=== PATIENT | male | born 1975 | race Caucasian/White ===

== ENCOUNTER 2018-10-08 12:45 | Emergency (ER) | payer BC, SELFPAY ==
--- NOTE | 2018-10-08 13:01 | EDPHYS ---
Physician Documentation [facility] Name: Reynaldo Mast Age: 43 yrs Sex: Male : 1975 Arrival Date: 10/08/2018 Time: 12:48 Bed 11 Private MD: None, None ED Physician Fred Garcia HPI: 10/08 12:58 This 43 yrs old Male presents to ER via Ambulatory with complaints of Ear jr8 Pain. 12:58 The patient presents with pain. The complaints affect the right ear. Onset: The jr8 symptoms/episode began/occurred gradually, 1 week(s) ago, and became worse and became persistent. Modifying factors: The symptoms are alleviated by nothing, the symptoms are aggravated by touching. Associated signs and symptoms: The patient has no apparent associated signs or symptoms. Severity of symptoms: At their worst the symptoms were moderate in the emergency department the symptoms are unchanged. It is unknown whether or not the patient has had similar symptoms in the past. The patient has not recently seen a physician. Historical: - Allergies: 12:50 PENICILLINS; sv - PMHx: 12:50 Diabetes - IDDM; right eye blind; Hypertension; sv - PSHx: 12:50 ear; sv - Immunization history:: Flu vaccine is up to date. - Social history:: Smoking status: Patient uses tobacco products, smokes one pack cigarettes per day. - Ebola Screening: : No symptoms or risks identified at this time. ROS: 12:58 Eyes: Negative for injury, pain, redness, and discharge, Neck: Negative for injury, jr8 pain, and swelling, Cardiovascular: Negative for chest pain, palpitations, and edema, Respiratory: Negative for shortness of breath, cough, wheezing, and pleuritic chest pain, Abdomen/GI: Negative for abdominal pain, nausea, vomiting, diarrhea, and constipation, Back: Negative for injury and pain, MS/Extremity: Negative for injury and deformity, Skin: Negative for injury, rash, and discoloration, Neuro: Negative for headache, weakness, numbness, tingling, and seizure. 12:58 ENT: Positive for ear pain, Negative for drainage from ear(s), Teeth pain tinnitus, nasal discharge, rhinorrhea, sinus congestion, sore throat, difficulty swallowing, difficulty handling secretions, hoarseness. Exam: 12:58 Head/Face: Normocephalic, atraumatic. Eyes: Pupils equal round and reactive to light, jr8 extra-ocular motions intact. Lids and lashes normal. Conjunctiva and sclera are non-icteric and not injected. Cornea within normal limits. Periorbital areas with no swelling, redness, or edema. Neck: Trachea midline, no thyromegaly or masses palpated, and no cervical lymphadenopathy. Supple, full range of motion without nuchal rigidity, or vertebral point tenderness. No Meningismus. Cardiovascular: Regular rate and rhythm with a normal S1 and S2. No gallops, murmurs, or rubs. Normal PMI, no JVD. No pulse deficits. Respiratory: Lungs have equal breath sounds bilaterally, clear to auscultation and percussion. No rales, rhonchi or wheezes noted. No increased work of breathing, no retractions or nasal flaring. Abdomen/GI: Soft, non-tender, with normal bowel sounds. No distension or tympany. No guarding or rebound. No evidence of tenderness throughout. Back: No spinal tenderness. No costovertebral tenderness. Full range of motion. Skin: Warm, dry with normal turgor. Normal color with no rashes, no lesions, and no evidence of cellulitis. MS/ Extremity: Pulses equal, no cyanosis. Neurovascular intact. Full, normal range of motion. Neuro: Awake and alert, GCS 15, oriented to person, place, time, and situation. Cranial nerves II-XII grossly intact. Motor strength 5/5 in all extremities. Sensory grossly intact. Cerebellar exam normal. Normal gait. 12:58 ENT: External ear(s): are unremarkable, Ear canal(s): erythema, that is moderate, of the right canal, purulent discharge, that is moderate, in the right canal, TM's: decreased mobility, on the right, dullness, on the right, erythema, that is moderate, on the right, fluid levels, on the right, Nose: External nose: no obvious acute abnormality, Nasal septum: is midline, Nasal mucosa: moist, Turbinates: are normal, Mouth: Lips: moist, Oral mucosa: pink and intact, moist, Gums: pink, Tongue: is moist, Posterior pharynx: Airway: patent, Tonsils: are normal in appearance, Uvula: midline, non-edematous, no erythema, swelling, is not appreciated, erythema, is not appreciated. Vital Signs: 12:50 BP 154 / 87; Pulse 72; Resp 18; Temp 98.3; Pulse Ox 100% ; Weight 58.97 kg; Height 5 sv ft. 4 in. (162.56 cm); Pain 8/10; 12:50 Body Mass Index 22.32 (58.97 kg, 162.56 cm) sv MDM: 12:54 Patient medically screened. jr8 12:58 Data reviewed: vital signs, nurses notes, and as a result, I will discharge patient. jr8 Data interpreted: Pulse oximetry: on room air is 100 %. Interpretation: normal. Counseling: I had a detailed discussion with the patient and/or guardian regarding: the historical points, exam findings, and any diagnostic results supporting the discharge/admit diagnosis. Counseling: I had a detailed discussion with the patient and/or guardian regarding: the need for outpatient follow up, a family practitioner, to return to the emergency department if symptoms worsen or persist or if there are any questions or concerns that arise at home. Administered Medications: 13:30 Not Given (order changed): Opp (7.5 mg-325 mg) 1 tabs PO once sv 13:30 Drug: Opp 5 mg-325 mg 1 tabs Route: PO; sv Disposition: 16:46 Co-signature as Attending Physician, Fred Garcia MD. ma2 Disposition: 10/08/18 13:01 Discharged to Home. Impression: Acute suppurative otitis media, Acute contact otitis externa, right ear. - Condition is Stable. - Discharge Instructions: Otitis Media, Adult, Otitis Externa. - Prescriptions for Zithromax Z- Tarik 250 mg Oral Tablet - take 1 tablet by ORAL route as directed for 5 days Day 1 - take two (2) tablets one time. Day 2, 3, 4 , 5 take one (1) tablet once daily.; 6 tablet. Ciprodex 0.3- 0.1 % Otic Drops, Suspension - instill 4 drop by OTIC route every 12 hours for 7 days , for ears ONLY; 1 Container. Tylenol- Codeine #3 300-30 mg Oral Tablet - take 2 tablets by ORAL route every 6 hours As needed; 12 tablet. - Medication Reconciliation Form, Thank You Letter, Antibiotic Education, Prescription Opioid Use form. - Follow up: Private Physician; When: 1 week; Reason: Recheck today's complaints, Continuance of care, Re-evaluation by your physician. - Problem is new. - Symptoms have improved. Signatures: Claudette Acosta RN RN Westley Mendez PA PA jr8 Fred Garcia MD MD ma2 Corrections: (The following items were deleted from the chart) 13:30 13:01 10/08/2018 13:01 Discharged to Home. Impression: Acute suppurative otitis media; sv Acute contact otitis externa, right ear. Condition is Stable. Forms are Medication Reconciliation Form, Thank You Letter, Antibiotic Education, Prescription Opioid Use. Follow up: Private Physician; When: 1 week; Reason: Recheck today's complaints, Continuance of care, Re-evaluation by your physician. Problem is new. Symptoms have improved. jr8
--- NOTE | 2018-10-08 13:01 | ER ---
Nurse's Notes [facility] Name: Reynaldo Mast Age: 43 yrs Sex: Male : 1975 Arrival Date: 10/08/2018 Time: 12:48 Bed 11 Private MD: None, None Diagnosis: Acute suppurative otitis media;Acute contact otitis externa, right ear Presentation: 10/08 12:49 Presenting complaint: Patient states: right ear pain x 1 week. Transition of care: sv patient was not received from another setting of care. Onset of symptoms was October 01, 2018. Care prior to arrival: None. 12:49 Method Of Arrival: Ambulatory sv 12:49 Acuity: MADI 5 sv Triage Assessment: 12:49 General: Appears in no apparent distress. uncomfortable, Behavior is calm, cooperative, sv appropriate for age. Pain: Complains of pain in right ear Pain currently is 8 out of 10 on a pain scale. Pain began 1 week ago. EENT: Reports pain in right ear. Neuro: Level of Consciousness is awake, alert, obeys commands, Oriented to person, place, time, situation, Moves all extremities. Full function Gait is steady. Respiratory: Respiratory effort is even, unlabored, Respiratory pattern is regular, symmetrical. Derm: Skin is pink, warm \T\ dry. Historical: - Allergies: 12:50 PENICILLINS; sv - PMHx: 12:50 Diabetes - IDDM; right eye blind; Hypertension; sv - PSHx: 12:50 ear; sv - Immunization history:: Flu vaccine is up to date. - Social history:: Smoking status: Patient uses tobacco products, smokes one pack cigarettes per day. - Ebola Screening: : No symptoms or risks identified at this time. Screenin:55 Abuse screen: Denies threats or abuse. Denies injuries from another. Nutritional sv screening: No deficits noted. Tuberculosis screening: No symptoms or risk factors identified. Fall Risk None identified. Assessment: 12:55 Reassessment: Patient appears in no apparent distress at this time. No changes from sv previously documented assessment. See triage assessment. Vital Signs: 12:50 BP 154 / 87; Pulse 72; Resp 18; Temp 98.3; Pulse Ox 100% ; Weight 58.97 kg; Height 5 sv ft. 4 in. (162.56 cm); Pain 8/10; 12:50 Body Mass Index 22.32 (58.97 kg, 162.56 cm) sv ED Course: 12:48 Patient arrived in ED. sb2 12:48 None, None is Private Physician. sb2 12:50 Triage completed. sv 12:51 Arm band placed on. sv 12:54 Claudette Acosta RN is Primary Nurse. sv 12:54 Westley Lima PA is PHCP. jr8 12:54 Fred Garcia MD is Attending Physician. jr8 12:55 Patient has correct armband on for positive identification. Adult w/ patient. sv 19:10 Primary Nurse role handed off by Claudette Acosta RN sv Administered Medications: 13:30 Not Given (order changed): Pep (7.5 mg-325 mg) 1 tabs PO once sv 13:30 Drug: Pep 5 mg-325 mg 1 tabs Route: PO; sv Outcome: 13:01 Discharge ordered by . jr8 13:30 Patient left the ED. sv Signatures: Claudette Acosta RN RN sv Westley Lima PA PA jr8 Chasidy Ramírez sb2 Corrections: (The following items were deleted from the chart) 12:52 12:50 Pulse 72bpm; Resp 18bpm; Pulse Ox 100%; Temp 98.3F; 58.97 kg; Height 5 ft. 4 in.; sv BMI: 22.3; Pain 8/10; sv
[2018-10-08] MEDS ORDERED: HYDROCODONE/APAP 5/325 MG TAB ONE (13:37)
[2018-10-08] MEDS ORDERED: GABAPENTIN 300 MG CAP ONE (13:47)
== END 2018-10-08 13:30 | disposition home or self-care (01) ==
LOC: ER 12:45
DX: H66.001 Acute suppurative otitis media without spontaneous rupture of ear drum, right ear (principal); H60.531 Acute contact otitis externa, right ear; I10 Essential (primary) hypertension; F17.210 Nicotine dependence, cigarettes, uncomplicated; Z88.0 Allergy status to penicillin
CPT/HCPCS: 99282

== ENCOUNTER 2018-10-22 10:33 | Emergency (ER) | payer OTHER, SELFPAY ==
--- NOTE | 2018-10-22 12:12 | ER ---
Nurse's Notes [facility] Name: Reynaldo Mast Age: 43 yrs Sex: Male : 1975 Arrival Date: 10/22/2018 Time: 10:35 Bed 11 Private MD: Diagnosis: Otitis media, unspecified, right ear Presentation: 10/22 10:44 Presenting complaint: Patient states: right ear pain and ear drainage for a couple of sv weeks and was seen here and sent home with prescriptions. Transition of care: patient was not received from another setting of care. Onset of symptoms was September 2018. Care prior to arrival: None. 10:44 Method Of Arrival: Ambulatory sv 10:44 Acuity: MADI 4 sv Triage Assessment: 10:46 General: Appears in no apparent distress. uncomfortable, Behavior is calm, cooperative, sv appropriate for age. Pain: Complains of pain in right ear Pain currently is 8 out of 10 on a pain scale. EENT: Reports pain in right ear and drainage. Neuro: Level of Consciousness is awake, alert, obeys commands, Oriented to person, place, time, situation, Gait is steady. Respiratory: Respiratory effort is even, unlabored, Respiratory pattern is regular, symmetrical. Historical: - Allergies: 10:45 PENICILLINS; sv - PMHx: 10:45 Diabetes - IDDM; Hypertension; right eye blind; sv - PSHx: 10:45 ear; sv - Immunization history:: Flu vaccine is up to date. - Social history:: Smoking status: Patient uses tobacco products, smokes one pack cigarettes per day. - Ebola Screening: : No symptoms or risks identified at this time. Screenin:52 Abuse screen: Denies threats or abuse. Denies injuries from another. Nutritional sv screening: No deficits noted. Tuberculosis screening: No symptoms or risk factors identified. Fall Risk None identified. Assessment: 11:51 Reassessment: Patient appears in no apparent distress at this time. No changes from sv previously documented assessment. Patient and/or family updated on plan of care and expected duration. Pain level reassessed. Patient is alert, oriented x 3, equal unlabored respirations, skin warm/dry/pink. See triage assessment. Vital Signs: 10:46 BP 131 / 97; Pulse 69; Resp 18; Temp 97.7; Pulse Ox 100% ; Weight 58.97 kg; Height 5 sv ft. 4 in. (162.56 cm); Pain 8/10; 10:46 Body Mass Index 22.32 (58.97 kg, 162.56 cm) sv ED Course: 10:35 Patient arrived in ED. as 10:45 Triage completed. sv 10:47 Arm band placed on Patient placed in waiting room, Patient notified of wait time. sv 11:47 Davon Voss PA is PHCP. cp 11:47 tSan Araujo MD is Attending Physician. cp 11:52 Patient has correct armband on for positive identification. sv 12:10 Claudette Montemayor MD is Referral Physician. cp 12:29 No provider procedures requiring assistance completed. Patient did not have IV access sv during this emergency room visit. Administered Medications: 12:29 Drug: traMADol 50 mg Route: PO; sv 12:29 Follow up: Response: Medication administered at discharge. sv 12:29 Drug: Ibuprofen 800 mg Route: PO; sv 12:29 Follow up: Response: Medication administered at discharge. sv Outcome: 12:12 Discharge ordered by MD. cp 12:29 Discharged to home ambulatory, with family. sv 12:29 Condition: stable 12:29 Discharge instructions given to patient, Instructed on discharge instructions, follow up and referral plans. medication usage, Demonstrated understanding of instructions, follow-up care, medications, Prescriptions given X 3. 12:29 Patient left the ED. sv Signatures: Claudette Acosta, RN RN Meera Huerta as Davon Voss PA PA cp Corrections: (The following items were deleted from the chart) 10:47 10:46 Pulse 69bpm; Resp 18bpm; Pulse Ox 100%; Temp 97.7F; 58.97 kg; Height 5 ft. 4 in.; sv BMI: 22.3; Pain 8/10; sv 10:48 10:44 Presenting complaint: Patient states: right ear pain for a couple of weeks and sv was seen here and sent home with prescriptions. sv
--- NOTE | 2018-10-22 12:13 | EDPHYS ---
Physician Documentation [facility] Name: Reynaldo Mast Age: 43 yrs Sex: Male : 1975 Arrival Date: 10/22/2018 Time: 10:35 Bed 11 Private MD: ED Physician Stan Araujo HPI: 10/22 12:05 This 43 yrs old Male presents to ER via Ambulatory with complaints of Ear cp Pain. 12:05 The patient presents with drainage, that is purulent, pain. The complaints affect the cp right ear. Onset: The symptoms/episode began/occurred 2 week(s) ago. Associated signs and symptoms: Pertinent negatives: cough, fever, rhinorrhea, sinus trouble, sore throat, vomiting. Severity of symptoms: in the emergency department the symptoms are unchanged despite home interventions. The patient has experienced a previous episode, last month. Historical: - Allergies: 10:45 PENICILLINS; sv - PMHx: 10:45 Diabetes - IDDM; Hypertension; right eye blind; sv - PSHx: 10:45 ear; sv - Immunization history:: Flu vaccine is up to date. - Social history:: Smoking status: Patient uses tobacco products, smokes one pack cigarettes per day. - Ebola Screening: : No symptoms or risks identified at this time. ROS: 12:06 Eyes: Negative for injury, pain, redness, and discharge. cp 12:06 Constitutional: Negative for body aches, chills, fever, poor PO intake. 12:06 ENT: Positive for drainage from ear(s), ear pain, Negative for sore throat, difficulty swallowing, difficulty handling secretions. 12:06 Respiratory: Negative for cough, shortness of breath, wheezing. 12:06 Abdomen/GI: Negative for abdominal pain, nausea, vomiting, and diarrhea. 12:06 Skin: Negative for cellulitis, rash. 12:06 Neuro: Negative for altered mental status, headache, weakness. 12:06 All other systems are negative. Exam: 12:08 Head/Face: Normocephalic, atraumatic. cp 12:08 Constitutional: The patient appears in no acute distress, alert, awake, non-toxic, well developed, well nourished. 12:08 Eyes: Periorbital structures: appear normal, Conjunctiva: normal, no exudate, no injection, Lids and lashes: appear normal, bilaterally. 12:08 ENT: External ear(s): are unremarkable, Ear canal(s): clear drainage noted right EAC, TM's: bulging, is not appreciated, bilaterally, erythema, that is mild, on the right, Nose: is normal, Mouth: Lips: moist, Oral mucosa: pink and intact, moist, Posterior pharynx: is normal, airway is patent, no erythema, no exudate. 12:08 Neck: ROM/movement: is normal, is supple, without pain, no range of motions limitations, no meningismus, no nuchal rigidity, Lymph nodes: no appreciated lymphadenopathy. 12:08 Chest/axilla: Inspection: normal. cp 12:08 Cardiovascular: Rate: normal. 12:08 Respiratory: the patient does not display signs of respiratory distress, Respirations: normal, no use of accessory muscles, no retractions, no splinting, no tachypnea. 12:08 Skin: cellulitis, is not appreciated, no rash present. Vital Signs: 10:46 BP 131 / 97; Pulse 69; Resp 18; Temp 97.7; Pulse Ox 100% ; Weight 58.97 kg; Height 5 sv ft. 4 in. (162.56 cm); Pain 8/10; 10:46 Body Mass Index 22.32 (58.97 kg, 162.56 cm) sv MDM: 11:47 Patient medically screened. cp 12:10 Differential diagnosis: otitis media, otitis externa, cerumen impaction, barotrauma . cp 12:11 Data reviewed: vital signs, nurses notes, and as a result, I will discharge patient. cp Administered Medications: 12:29 Drug: traMADol 50 mg Route: PO; sv 12:29 Follow up: Response: Medication administered at discharge. sv 12:29 Drug: Ibuprofen 800 mg Route: PO; sv 12:29 Follow up: Response: Medication administered at discharge. sv Disposition: 12:59 Co-signature as Attending Physician, Stan Araujo MD I agree with the assessment and kdr plan of care. Disposition: 10/22/18 12:12 Discharged to Home. Impression: Otitis media, unspecified, right ear. - Condition is Stable. - Discharge Instructions: Otitis Media, Adult, [id number]. - Prescriptions for cefdinir 300 mg Oral capsule - take 1 capsule by ORAL route every 12 hours for 10 days; 20 capsule. Ibuprofen 800 mg Oral Tablet - take 1 tablet by ORAL route every 8 hours As needed take with food; 30 tablet. Tramadol 50 mg Oral Tablet - take 1 tablet by ORAL route every 8 hours as needed; 12 tablet. - Medication Reconciliation Form, Thank You Letter, Antibiotic Education, Prescription Opioid Use form. - Follow up: Claudette Montemayor MD; When: 1 week; Reason: Recheck today's complaints. - Problem is new. - Symptoms are unchanged. Signatures: Claudette Acosta RN RN Stan Draper MD MD [facility] Davon Voss PA PA cp Corrections: (The following items were deleted from the chart) 12:29 12:12 10/22/2018 12:12 Discharged to Home. Impression: Otitis media, unspecified, right sv ear. Condition is Stable. Forms are Medication Reconciliation Form, Thank You Letter, Antibiotic Education, Prescription Opioid Use. Follow up: Claudette Montemayor; When: 1 week; Reason: Recheck today's complaints. Problem is new. Symptoms are unchanged. cp
[2018-10-22] MEDS ORDERED: TRAMADOL HCL 50 MG TAB ONE (12:35)
[2018-10-22] MEDS ORDERED: IBUPROFEN 400 MG TAB ONE (12:35)
== END 2018-10-22 12:29 | disposition home or self-care (01) ==
LOC: ER 10:33
DX: H66.91 Otitis media, unspecified, right ear (principal); I10 Essential (primary) hypertension; F17.210 Nicotine dependence, cigarettes, uncomplicated; Z88.0 Allergy status to penicillin
CPT/HCPCS: 99283

== ENCOUNTER 2019-01-28 21:34 | Emergency (ER) | payer OTHER ==
--- OUTSIDE RECORDS SUMMARY | 2019-01-28 21:36 | XMS REPORT ---
:1975 Author [facility] Address [address] [place] [address] Dr. Obrien [address] [place] [id number] Care Team Providers Name Role Phone Unavailable Unavailable Unavailable Problems This patient has no known problems. Allergies, Adverse Reactions, Alerts This patient has no known allergies or adverse reactions. Medications This patient has no known medications.
--- NOTE | 2019-01-28 22:39 | RAD REPORT ---
EXAM DESCRIPTION: RAD - Lumbar Spine 3 Views - 01/28/2019 10:32 pm CLINICAL HISTORY: Back pain FINDINGS: The alignment of the lumbar spine is satisfactory. No fracture or dislocation is seen. No bone or joint abnormality seen
--- NOTE | 2019-01-28 22:57 | ER ---
Nurse's Notes [facility] Name: Reynaldo Mast Age: 43 yrs Sex: Male : 1975 Arrival Date: 01/28/2019 Time: 21:39 Bed 26 Private MD: Manolo Deleon Diagnosis: Low back pain;Other slipping, tripping and stumbling and falls Presentation: 01/28 22:03 Presenting complaint: Patient states: "I was at work and I slipped on some oil, I think aj1 I pulled something" Patient reports lower back pain. Reports the pain is worse with any movement. Transition of care: patient was not received from another setting of care. Onset of symptoms was January 28, 2019 at 16:00. Risk Assessment: Do you want to hurt yourself or someone else? Patient reports no desire to harm self or others. Initial Sepsis Screen: Does the patient meet any 2 criteria? No. Patient's initial sepsis screen is negative. Does the patient have a suspected source of infection? No. Patient's initial sepsis screen is negative. Care prior to arrival: None. 22:03 Method Of Arrival: Wheelchair aj 22:03 Acuity: MADI 4 aj1 Triage Assessment: 22:05 General: Appears in no apparent distress. uncomfortable, Behavior is cooperative, aj1 anxious, restless. Pain: Complains of pain in low back area Pain radiates to right ear, left ear, left scapular area, right scapular area and neck Pain currently is 10 out of 10 on a pain scale. Neuro: Level of Consciousness is awake, alert, obeys commands. Cardiovascular: Patient's skin is warm and dry. Respiratory: Airway is patent Respiratory effort is even, unlabored, Respiratory pattern is regular, symmetrical. Derm: No signs and/or symptoms reported regarding the dermatologic system. Skin is pink, warm \\T\\ dry. normal. Musculoskeletal: Circulation, motion, and sensation intact. Range of motion: intact in all extremities. Historical: - Allergies: 22:05 PENICILLINS; aj1 - Home Meds: 22:05 Lisinopril Oral [Active]; Novolog Sub-Q [Active]; Lantus Sub-Q [Active]; aj1 - PMHx: 22:05 Diabetes - IDDM; Hypertension; right eye blind; aj1 - Immunization history:: Flu vaccine is not up to date. - Social history:: Smoking status: Patient uses tobacco products, smokes one-half pack cigarettes per day. - Ebola Screening: : Patient denies travel to an Ebola-affected area in the 21 days before illness onset. Screenin:19 Abuse screen: Denies threats or abuse. Denies injuries from another. Nutritional mg2 screening: No deficits noted. Tuberculosis screening: No symptoms or risk factors identified. Fall Risk Ambulatory Aid- None/Bed Rest/Nurse Assist (0 pts). Assessment: 23:00 General: Appears in no apparent distress. comfortable, Behavior is calm, cooperative. mg2 Pain: Complains of pain in lower back Pain does not radiate. Pain currently is 8 out of 10 on a pain scale. Quality of pain is described as aching, Pain began gradually, Is intermittent. Neuro: Level of Consciousness is awake, alert, obeys commands, Oriented to person, place, time, situation. Cardiovascular: Capillary refill < 3 seconds Patient's skin is warm and dry. Respiratory: Airway is patent Respiratory effort is even, unlabored, Respiratory pattern is regular, symmetrical. GI: No signs and/or symptoms were reported involving the gastrointestinal system. : No signs and/or symptoms were reported regarding the genitourinary system. EENT: No signs and/or symptoms were reported regarding the EENT system. Derm: Skin is intact, is healthy with good turgor, Skin is pink, warm \\T\\ dry. normal. Musculoskeletal: Circulation, motion, and sensation intact. Capillary refill < 3 seconds, Reports pain in back. Vital Signs: 22:05 BP 118 / 70; Pulse 83; Resp 18; Temp 98.5; Pulse Ox 100% on R/A; Weight 58.97 kg (R); aj1 Height 5 ft. 4 in. (162.56 cm) (R); Pain 10/10; 23:19 BP 120 / 74; Pulse 88; Resp 18; Temp 98; Pulse Ox 100% on R/A; Pain 4/10; mg2 22:05 Body Mass Index 22.31 (58.97 kg, 162.56 cm) aj1 ED Course: 21:39 Patient arrived in ED. mr 21:39 None, None is Private Physician. mr 21:39 Manolo Deleon DO is Private Physician. mr 22:04 Triage completed. aj1 22:05 Arm band placed on Patient placed in waiting room, Patient notified of wait time. aj1 22:32 XRAY Lumbar Spine (3 Views) In Process Unspecified. EDMS 22:40 Edy Espinal NP is PHCP. pm1 22:41 Hubert Dockery MD is Attending Physician. pm1 22:54 Chloe Vallecillo, RN is Primary Nurse. ls4 23:19 No provider procedures requiring assistance completed. Patient did not have IV access mg2 during this emergency room visit. 23:20 Patient has correct armband on for positive identification. mg2 Administered Medications: 23:11 Drug: [address] 10 mg-325 mg 1 tabs Route: PO; mg2 23:15 Follow up: Response: No adverse reaction; Medication administered at discharge. mg2 23:11 Drug: Ibuprofen 800 mg Route: PO; mg2 23:14 Follow up: Response: No adverse reaction; Medication administered at discharge. mg2 Outcome: 22:56 Discharge ordered by MD. pm1 23:19 Discharged to home via wheelchair, with family. mg2 23:19 Condition: stable 23:19 Discharge instructions given to patient, family, Instructed on discharge instructions, follow up and referral plans. medication usage, Demonstrated understanding of instructions, follow-up care, medications, Prescriptions given X 1. 23:20 Patient left the ED. mg2 Signatures: Dispatcher [employer] EDMS Galilea Huizar, PATRICIA RN aj1 MataAna M mr Edy Espinal NP SQL REPORT ANALYST pm1 Siddhartha Fairchild RN RN mg2 Chloe Vallecillo RN RN ls4
--- NOTE | 2019-01-28 22:57 | EDPHYS ---
Physician Documentation [facility] Name: Reynaldo Mast Age: 43 yrs Sex: Male : 1975 Arrival Date: 01/28/2019 Time: 21:39 Bed 26 Private MD: [place] Deleonh ED Physician Hubert Dockery HPI: 01/28 23:05 This 43 yrs old Male presents to ER via Wheelchair with complaints of Back pm1 Pain. 23:05 The patient presents with pain that is acute. The symptoms are located in the low back. pm1 Onset: The symptoms/episode began/occurred today. The pain does not radiate. Associated signs and symptoms: Pertinent negatives: abdominal pain, chest pain, headache, incontinence, numbness, tingling, vomiting, weakness. The problem was sustained slipped and fell on the floor. Modifying factors: The patient symptoms are alleviated by nothing, the patient symptoms are aggravated by movement. Severity of symptoms: in the emergency department the symptoms are actually worse. The patient has not experienced similar symptoms in the past. The patient has not recently seen a physician. Historical: - Allergies: 22:05 PENICILLINS; aj1 - Home Meds: 22:05 Lisinopril Oral [Active]; Novolog Sub-Q [Active]; Lantus Sub-Q [Active]; aj1 - PMHx: 22:05 Diabetes - IDDM; Hypertension; right eye blind; aj1 - Immunization history:: Flu vaccine is not up to date. - Social history:: Smoking status: Patient uses tobacco products, smokes one-half pack cigarettes per day. - Ebola Screening: : Patient denies travel to an Ebola-affected area in the 21 days before illness onset. ROS: 23:05 Constitutional: Negative for fever, chills, and weight loss, Eyes: Negative for injury, pm1 pain, redness, and discharge, ENT: Negative for injury, pain, and discharge, Neck: Negative for injury, pain, and swelling, Cardiovascular: Negative for chest pain, palpitations, and edema, Respiratory: Negative for shortness of breath, cough, wheezing, and pleuritic chest pain, Abdomen/GI: Negative for abdominal pain, nausea, vomiting, diarrhea, and constipation. 23:05 : Negative for injury, bleeding, discharge, and swelling, MS/Extremity: Negative for injury and deformity, Skin: Negative for injury, rash, and discoloration, Neuro: Negative for headache, weakness, numbness, tingling, and seizure. 23:05 Back: Positive for of the right low back, Negative for radiated pain. Exam: 23:05 Constitutional: This is a well developed, well nourished patient who is awake, alert, pm1 and in no acute distress. Head/Face: Normocephalic, atraumatic. Eyes: Pupils equal round and reactive to light, extra-ocular motions intact. Lids and lashes normal. Conjunctiva and sclera are non-icteric and not injected. Cornea within normal limits. Periorbital areas with no swelling, redness, or edema. ENT: Nares patent. No nasal discharge, no septal abnormalities noted. Tympanic membranes are normal and external auditory canals are clear. Oropharynx with no redness, swelling, or masses, exudates, or evidence of obstruction, uvula midline. Mucous membranes moist. Neck: Trachea midline, no thyromegaly or masses palpated, and no cervical lymphadenopathy. Supple, full range of motion without nuchal rigidity, or vertebral point tenderness. No Meningismus. Chest/axilla: Normal chest wall appearance and motion. Nontender with no deformity. No lesions are appreciated. Cardiovascular: Regular rate and rhythm with a normal S1 and S2. No gallops, murmurs, or rubs. Normal PMI, no JVD. No pulse deficits. Respiratory: Lungs have equal breath sounds bilaterally, clear to auscultation and percussion. No rales, rhonchi or wheezes noted. No increased work of breathing, no retractions or nasal flaring. Abdomen/GI: Soft, non-tender, with normal bowel sounds. No distension or tympany. No guarding or rebound. No evidence of tenderness throughout. 23:05 Skin: Warm, dry with normal turgor. Normal color with no rashes, no lesions, and no evidence of cellulitis. MS/ Extremity: Pulses equal, no cyanosis. Neurovascular intact. Full, normal range of motion. 23:05 Back: vertebral tenderness, is not appreciated, muscle spasm, is appreciated in the right low back. 23:05 Neuro: Orientation: is normal, Motor: moves all fours, Sensation: is normal, no obvious gross deficits. Vital Signs: 22:05 BP 118 / 70; Pulse 83; Resp 18; Temp 98.5; Pulse Ox 100% on R/A; Weight 58.97 kg (R); aj1 Height 5 ft. 4 in. (162.56 cm) (R); Pain 10/10; 23:19 BP 120 / 74; Pulse 88; Resp 18; Temp 98; Pulse Ox 100% on R/A; Pain 4/10; mg2 22:05 Body Mass Index 22.31 (58.97 kg, 162.56 cm) aj1 MDM: 22:41 Patient medically screened. pm1 22:55 Data reviewed: vital signs. Data interpreted: Pulse oximetry: on room air is 100 %. pm1 Interpretation: normal. Counseling: I had a detailed discussion with the patient and/or guardian regarding: the historical points, exam findings, and any diagnostic results supporting the discharge/admit diagnosis, radiology results, the need for outpatient follow up, to return to the emergency department if symptoms worsen or persist or if there are any questions or concerns that arise at home. 01/28 22:07 Order name: XRAY Lumbar Spine (3 Views); Complete Time: 22:41 [facility] Administered Medications: 23:11 Drug: [place] 10 mg-325 mg 1 tabs Route: PO; mg2 23:15 Follow up: Response: No adverse reaction; Medication administered at discharge. mg2 23:11 Drug: Ibuprofen 800 mg Route: PO; mg2 23:14 Follow up: Response: No adverse reaction; Medication administered at discharge. mg2 Disposition: 01/28/19 22:56 Discharged to Home. Impression: Low back pain, Other slipping, tripping and stumbling and falls. - Condition is Stable. - Discharge Instructions: Back Pain, Adult, Contusion. - Prescriptions for Tramadol 50 mg Oral Tablet - take 1 tablet by ORAL route every 8 hours as needed; 12 tablet. - Medication Reconciliation Form, Thank You Letter, Antibiotic Education, Prescription Opioid Use, Work release form form. - Follow up: Emergency Department; When: As needed; Reason: Worsening of condition. Follow up: Private Physician; When: 2 - 3 days; Reason: Recheck today's complaints, Continuance of care, Re-evaluation by your physician. - Problem is new. - Symptoms have improved. Addendum: 01/31/2019 06:43 Co-signature as Attending Physician, Hubert Dockery MD I agree with the assessment and t w4 plan of care. Signatures: Dispatcher [employer] EDGalilea Barnett, RN RN aj1 Edy Espinal, [employer]CH[employer]NS[employer] pm1 Hubert Dockery MD MD tw4 Siddhartha Fairchild, PATRICIA RN mg2 Corrections: (The following items were deleted from the chart) 01/28 23:20 22:56 01/28/2019 22:56 Discharged to Home. Impression: Low back pain; Other slipping, mg2 tripping and stumbling and falls. Condition is Stable. Forms are Medication Reconciliation Form, Thank You Letter, Antibiotic Education, Prescription Opioid Use. Follow up: Emergency Department; When: As needed; Reason: Worsening of condition. Follow up: Private Physician; When: 2 - 3 days; Reason: Recheck today's complaints, Continuance of care, Re-evaluation by your physician. Problem is new. Symptoms have improved. pm1
[2019-01-28] MEDS ORDERED: IBUPROFEN 400 MG TAB ONE (23:13)
[2019-01-28] MEDS ORDERED: HYDROCODONE/APAP 10/325 TAB ONE (23:13)
== END 2019-01-28 23:20 | disposition home or self-care (01) ==
LOC: ER 21:34
DX: M54.5 Low back pain (principal); W01.0XXA Fall on same level from slipping, tripping and stumbling without subsequent striking against object, initial encounter; I10 Essential (primary) hypertension; E11.9 Type 2 diabetes mellitus without complications; F17.210 Nicotine dependence, cigarettes, uncomplicated; Z79.4 Long term (current) use of insulin; Z88.0 Allergy status to penicillin
CPT/HCPCS: 72100; 99283

== ENCOUNTER 2019-05-20 19:17 | Emergency (ER) | payer OTHER ==
--- OUTSIDE RECORDS SUMMARY | 2019-05-20 19:20 | XMS REPORT | Summary of Care ---
:1975 Author Organization [facility] Address [address] [place] [id number] Care Team Providers Name Role Phone Desmond Martinez MD Primary Care Provider Reason for Visit Reason Comments Rx Concern/Question Encounter Details Date Type Department Care Team Description 04/20/2019 Telephone [facility] Desmond Martinez III, MD Rx Concern/Question Medicine - [address] [facility] [facility] [address] [place] [address] [place] [address] [phone] Allergies Active Allergy Reactions Severity Noted Date Comments Penicillins Swelling 08/25/2008 documented as of this encounter (statuses as of 04/20/2019) Medications Medication Sig Dispensed Refills Start End Status Date Date aspirin 81 mg tablet Take 81 mg by 0 Active mouth daily. enalapril (VASOTEC) 20 Take 20 mg by 0 Active mg tablet mouth daily. hydrochlorothiazide Take 25 mg by 0 Active (ESIDRIX) 25 mg tablet mouth daily. insulin NPH (NOVOLIN N) inject under 0 Active 100 unit/mL injection the skin every morning and evening. SSI: 150-200: 2Units 201-250 4Units 251-300: 6 Units 301-350: 8 units 351-400: 10 Units 401-450: 12 units 451-500: 14 units >500 UA w/ketones: call hydrocodone-acetaminoph Take 1 Tab by 30 0 Active en (NORCO) 5-325 mg mouth every 6 0 tablet (six) hours as needed for Pain. prednisoLONE acetate Place 1 Drop 4 0 Active (PRED-FORTE) 1 % in right eye 4 0 ophthalmic suspension (four) times drops daily. moxifloxacin (VIGAMOX) Place 1 Drop 4 0 Active 0.5 % ophthalmic drops in right eye 4 0 (four) times daily. insulin NPH (NOVOLIN N) inject 18 5 0 Active 100 unit/mL injection Units under 0 the skin every morning. oseltamivir (TAMIFLU) Take 1 Cap by 10 Cap 0 Active 75 mg capsule mouth 2 (two) 3 times daily. Ciprofloxacin 0.2 % Place 2 Drops 10 mL 1 Active otic dropsIndications: in each ear 2 9 Chronic tubotympanic (two) times suppurative otitis daily. media of right ear insulin regular human inject 12 3 Vial 11 Active (NOVOLIN R REGULAR Units under 9 U-100 INSULN) 100 the skin 2 unit/mL (two) times injectionIndications: daily before Type 1 diabetes breakfast and mellitus with dinner. proliferative retinopathy of right eye, macular edema presence unspecified, unspecified proliferative retinopathy type lisinopril 40 mg Take 1 tablet 90 tablet 3 Active tabletIndications: Type by mouth 9 1 diabetes mellitus daily. with proliferative retinopathy of right eye, macular edema presence unspecified, unspecified proliferative retinopathy type pen needle, diabetic 1 Each daily. To administer medication 100 Each 2 Active (COMFORT EZ PEN DX: E10.3591 9 NEEDLES) 33 gauge x 5/32" Ndle insulin NPH 100 unit/mL inject 15 3 mL 11 Active injectionIndications: Units under 9 Uncontrolled type 1 the skin every diabetes mellitus with evening. Needs hyperglycemia a pen Insulin Glargine inject 15 1 Box 11 Active (BASAGLAR KWIKPEN U-100 Units under 9 INSULIN) 100 unit/mL (3 the skin 2 mL) (two) times injectionIndications: daily. Uncontrolled type 1 diabetes mellitus with hyperglycemia gabapentin 100 mg Take 1 capsule 90 capsule 3 Active capsuleIndications: by mouth 3 9 Uncontrolled type 1 (three) times diabetes mellitus with daily. hyperglycemia insulin lispro (ADMELOG inject 10 1 Box 11 Active SOLOSTAR U-100 INSULIN) Units under 9 100 unit/mL pen the skin 3 injectorIndications: (three) times Uncontrolled type 1 daily before diabetes mellitus with meals. hyperglycemia Insulin [place], Use 2 (two) 100 Each 2 Active Disposable, 31 gauge x times daily 9 5/16" NdleIndications: before Uncontrolled type 1 breakfast and diabetes mellitus with dinner to hyperglycemia administer medication under the skin DX: E10.3591 FLUoxetine 40 mg Take 1 capsule 90 capsule 3 Active capsuleIndications: by mouth 9 Episode of recurrent daily. major depressive disorder, unspecified depression episode severity FLUoxetine (PROZAC) 20 Take 1 capsule 90 capsule 3 Discontinued mg capsuleIndications: by mouth 9 019 Episode of recurrent daily. 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 02/08/2019 Hyperglycemia 06/07/2010 Uncontrolled type 1 diabetes mellitus 12/22/2008 Overview: ICD10 Diagnosis Term Field Representative/Health Education Utility Type II or unspecified type diabetes mellitus with hyperosmolarity, 08/25/2008 uncontrolled documented as of this encounter (statuses as of 04/20/2019) Immunizations Name Administration Dates Next Due Pneumococcal 7 Conjugate, PCV7 (Prevnar7) 05/24/2010 documented as of this encounter Social History Tobacco Use Types Packs/Day Years Used Date Current Every Day Smoker Cigarettes 0.5 14 Smokeless Tobacco: Never Used Comments: quit 10m ago 2/2 incarceration Alcohol Use Drinks/Week oz/Week Comments No socially Sex Assigned at Date Recorded Not on file Job Start Date Occupation Industry Not on file Not on file Not on file Travel History Travel Start Travel End No recent travel history available. documented as of this encounter Last Filed Vital Signs Not on filedocumented in this encounter Plan of Treatment Date Type Specialty Care Team Description 05/20/2019 Office Visit Neurology Sydney Deleon MD [address] [place] [address] Health Maintenance Due Date Last Done Comments EYE EXAM 1985 URINE MICROALBUMIN 1985 FOOT EXAM 1993 DTaP,Tdap,and Td Vaccines (1 - 1994 Tdap) LDL-C 12/21/2009 12/21/2008 PNEUMOCOCCAL 0-64 YEARS COMBINED 07/19/2010 05/24/2010 SERIES (1 of 1 - PPSV23) CREATININE (SERUM) 06/11/2011 06/11/2010, 06/10/2010, 06/07/2010, Additional history exists INFLUENZA VACCINE 05/15/2019 HgA1C 08/11/2019 02/08/2019, 06/08/2010, 12/21/2008 documented as of this encounter Results Not on filedocumented in this encounter Visit Diagnoses Diagnosis Episode of recurrent major depressive disorder, unspecified depression episode severity documented in this encounter Insurance Payer Benefit Plan Subscriber ID Effective Dates Phone Address Type / Group [facility] xxxxxxxxx 2013-Prese Medicaid HEALTH[employer] COMM [employer] nt PLAN - MANAGED MEDICAID [facility] [id number] [place] [facility] [id number] [place] Effective for [place], all dates [place] documented as of this encounter
--- OUTSIDE RECORDS SUMMARY | 2019-05-20 19:20 | XMS REPORT | Summary of Care ---
:1975 Author Organization [facility] Address [address] [place] [id number] Care Team Providers Name Role Phone Desmond Martinez MD Primary Care Provider Reason for Visit Reason Comments Refill Request Encounter Details Date Type Department Care Team Description 05/05/2019 Telephone [facility] Pediatric and Desmond Martinez III, MD Refill Request Adult Primary Care- [address] [place] [address] Dr. Davenport [address] [place], [place] [address] [address] [place] [address] [phone] Allergies Active Allergy Reactions Severity Noted Date Comments Penicillins Swelling 08/25/2008 documented as of this encounter (statuses as of 05/05/2019) Medications Medication Sig Dispensed Refills Start Date End Date Status aspirin 81 mg tablet Take 81 mg by 0 Active mouth daily. enalapril (VASOTEC) 20 mg Take 20 mg by 0 Active tablet mouth daily. hydrochlorothiazide Take 25 mg by 0 Active (ESIDRIX) 25 mg tablet mouth daily. insulin NPH (NOVOLIN N) inject under 0 Active 100 unit/mL injection the skin every morning and evening. SSI: 150-200: 2Units 201-250 4Units 251-300: 6 Units 301-350: 8 units 351-400: 10 Units 401-450: 12 units 451-500: 14 units >500 UA w/ketones: call hydrocodone-acetaminophen Take 1 Tab by 30 0 06/11/2010 Active (NORCO) 5-325 mg tablet mouth every 6 (six) hours as needed for Pain. prednisoLONE acetate Place 1 Drop in 4 0 06/11/2010 Active (PRED-FORTE) 1 % right eye 4 ophthalmic suspension (four) times drops daily. moxifloxacin (VIGAMOX) Place 1 Drop in 4 0 06/11/2010 Active 0.5 % ophthalmic drops right eye 4 (four) times daily. insulin NPH (NOVOLIN N) inject 18 Units 5 0 06/11/2010 Active 100 unit/mL injection under the skin every morning. oseltamivir (TAMIFLU) 75 Take 1 Cap by 10 Cap 0 09/08/2013 Active mg capsule mouth 2 (two) times daily. Ciprofloxacin 0.2 % otic Place 2 Drops 10 mL 1 01/10/2019 Active dropsIndications: Chronic in each ear 2 tubotympanic suppurative (two) times otitis media of right ear daily. insulin regular human inject 12 Units 3 Vial 11 01/10/2019 Active (NOVOLIN R REGULAR U-100 under the skin INSULN) 100 unit/mL 2 (two) times injectionIndications: daily before Type 1 diabetes mellitus breakfast and with proliferative dinner. retinopathy of right eye, macular edema presence unspecified, unspecified proliferative retinopathy type lisinopril 40 mg Take 1 tablet 90 tablet 3 01/10/2019 Active tabletIndications: Type 1 by mouth daily. diabetes mellitus with proliferative retinopathy of right eye, macular edema presence unspecified, unspecified proliferative retinopathy type pen needle, diabetic 1 Each daily. To administer medication 100 Each 2 10/2018 Active (COMFORT EZ PEN NEEDLES) DX: E10.3591 33 gauge x 32" Ndle insulin NPH 100 unit/mL inject 15 Units 3 mL 11 02/08/2019 Active injectionIndications: under the skin Uncontrolled type 1 every evening. diabetes mellitus with Needs a pen hyperglycemia Insulin Glargine inject 15 Units 1 Box 11 02/11/2019 Active (BASAGLAR KWIKPEN U-100 under the skin INSULIN) 100 unit/mL (3 2 (two) times mL) injectionIndications: daily. Uncontrolled type 1 diabetes mellitus with hyperglycemia gabapentin 100 mg Take 1 capsule 90 capsule 3 02/23/2019 Active capsuleIndications: by mouth 3 Uncontrolled type 1 (three) times diabetes mellitus with daily. hyperglycemia insulin lispro (ADMELOG inject 10 Units 1 Box 11 02/23/2019 Active SOLOSTAR U-100 INSULIN) under the skin 100 unit/mL pen 3 (three) times injectorIndications: daily before Uncontrolled type 1 meals. diabetes mellitus with hyperglycemia Insulin [place], Use 2 (two) 100 Each 2 02/23/2019 Active Disposable, 31 gauge x times daily 5/16" NdleIndications: before Uncontrolled type 1 breakfast and diabetes mellitus with dinner to hyperglycemia administer medication under the skin DX: E10.3591 FLUoxetine 40 mg Take 1 capsule 90 capsule 3 04/20/2019 Active capsuleIndications: by mouth daily. Episode of recurrent major depressive disorder, unspecified depression episode severity amLODIPine 5 mg Take 1 tablet 90 tablet 0 05/05/2019 Active tabletIndications: by mouth daily. 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 02/08/2019 Hyperglycemia 06/07/2010 Uncontrolled type 1 diabetes mellitus 12/22/2008 Overview: ICD10 Diagnosis Term Vending Machine Repairer Utility Type II or unspecified type diabetes mellitus with hyperosmolarity, 08/25/2008 uncontrolled documented as of this encounter (statuses as of 05/05/2019) Immunizations Name Administration Dates Next Due Pneumococcal [...] Office Visit Neurology Sydney Deleon MD [address] [place] [address] Health Maintenance Due Date Last Done Comments EYE EXAM 1985 URINE MICROALBUMIN 1985 FOOT EXAM 1993 DTaP,Tdap,and Td Vaccines (1 - 1994 Tdap) LDL-C 12/21/2009 12/21/2008 PNEUMOCOCCAL 0-64 YEARS COMBINED 07/19/2010 05/24/2010 SERIES (1 of 1 - PPSV23) CREATININE (SERUM) 06/11/2011 06/11/2010, 06/10/2010, 06/07/2010, Additional history exists INFLUENZA VACCINE (#1) 2019 HgA1C 08/11/2019 02/08/2019, 06/08/2010, 12/21/2008 documented as of this encounter Results Not on filedocumented in this encounter Visit Diagnoses Diagnosis Essential hypertension - Primary Unspecified essential hypertension documented in this encounter Insurance Payer Benefit Plan Subscriber ID Effective Dates Phone Address Type / Group [facility] xxxxxxxxx 2013-Prese Medicaid HEALTHCARE COMM STAR PLUS nt PLAN - MANAGED MEDICAID [facility] [place] [facility] [place] [place] Effective for [place], all dates [place] documented as of this encounter
--- OUTSIDE RECORDS SUMMARY | 2019-05-20 19:20 | XMS REPORT | Summary of Care ---
:1975 Author Organization [facility] - Health Address [address] [place] [address] Care Team Providers Name Role Phone Desmond Martinez MD Primary Care Provider Reason for Visit Reason Comments Notification health maintenance Encounter Details Date Type Department Care Team Description 04/26/2019 Telephone [facility] Pediatric Desmond Martinez III, Notification (health and Adult Primary MD maintenance) Care- [address] [place] [address] , [address] [place] [address] [place] [phone] [address] [phone] Allergies Active Allergy Reactions Severity Noted Date Comments Penicillins Swelling 08/25/2008 documented as of this encounter (statuses as of 04/26/2019) Medications Medication Sig Dispensed Refills Start Date [...] PEN NEEDLES) DX: E10.3591 33 gauge x " Ndle insulin NPH 100 unit/mL inject 15 [...] 1 meals. 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 Richter [address] [place] [address] [phone] 05/20/2019 Office Visit Neurology Sydney Deleon MD [address] [place] [address] Health Maintenance Due Date Last [...] Results Not on filedocumented in this encounter Insurance Payer Benefit Plan Subscriber ID Effective Dates Phone Address Type / Group [facility] xxxxxxxxx 2013-Prese Medicaid HEALTHCARE COMM STAR PLUS nt PLAN - MANAGED MEDICAID [facility] [place] [facility] [place] Effective for [place], all dates [place] documented as of this encounter
--- OUTSIDE RECORDS SUMMARY | 2019-05-20 19:20 | XMS REPORT | Summary of Care ---
:1975 Author Organization [facility] - [facility] Address [address] [place] [address] Care Team Providers Name Role Phone Desmond Martinez MD Primary Care Provider Reason for Visit Reason Comments Refill Request Encounter Details Date Type Department Care Team Description 04/20/2019 Refill [facility] Family Medicine Desmond Martinez III, MD Refill Request - [address] [place] [address] [place] [address] [phone] Allergies Active Allergy Reactions Severity Noted Date Comments Penicillins Swelling 08/25/2008 documented as of this encounter (statuses as of 04/20/2019) Medications Medication Sig Dispensed Refills Start Date [...] 1 meals. 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
[2019-05-20] MEDS ORDERED: METOCLOPRAMIDE 10 MG/2mL INJ ONE (21:13)
[2019-05-20] MEDS ORDERED: DIPHENHYDRAMINE 50 MG/ML VIAL ONE (21:13)
[2019-05-20] MEDS ORDERED: KETOROLAC 30 MG/ML INJ ONE (21:13)
[2019-05-20 21:43] LABS: Absolute Lymphocytes (CBC) 2.7 K/uL (0.7-4.9); Basophils % 0.9 % (0-1.3); Hematocrit 37.9 % (39.6-49.0); Lymphocytes % 23.3 % (15.3-44.8); MPV 7.4 fL (7.6-11.3)
[2019-05-20 21:56] LABS: Potassium 4.9 mmol/L (3.5-5.1)
[2019-05-20] MEDS ORDERED: NA CHLORIDE 0.9% 500 ML ONE (22:08)
[2019-05-20] MEDS ORDERED: INSULIN -REGULAR HUMAN 50 UNIT/0.5 ML ML ONE (22:21)
--- NOTE | 2019-05-20 23:24 | ER ---
Nurse's Notes [facility] Name: Reynadlo Mast Age: 43 yrs Sex: Male : 1975 Arrival Date: 05/20/2019 Time: 19:22 Bed 30 Private MD: Diagnosis: Hyperglycemia, unspecified;Weakness;encephalomalacia Presentation: 05/20 19:45 Presenting complaint: Significant other states: His legs got really weak around noon, aj1 and his back has been hurting. Patient states that his legs have been giving out on him for awhile but today has been worse. Patient also reports shortness of breath and chest pain. Reports cough and congestion. Reports fever 2 night ago but none since then. Transition of care: patient was not received from another setting of care. Onset of symptoms was May 18, 2019. Risk Assessment: Do you want to hurt yourself or someone else? Patient reports no desire to harm self or others. Initial Sepsis Screen: Does the patient meet any 2 criteria? No. Patient's initial sepsis screen is negative. Does the patient have a suspected source of infection? Yes: Productive cough/pneumonia. Care prior to arrival: None. 19:45 Method Of Arrival: Wheelchair aj1 19:45 Acuity: MADI 3 aj1 Triage Assessment: 19:48 General: Appears in no apparent distress. uncomfortable, Behavior is calm, cooperative, aj1 appropriate for age. Pain: Complains of pain in chest Pain does not radiate. Pain currently is 6 out of 10 on a pain scale. Neuro: Level of Consciousness is awake, alert, obeys commands, Oriented to person, place, time, situation, Speech is normal, Facial symmetry appears normal, Reports weakness in both legs. Cardiovascular: Patient's skin is warm and dry. Respiratory: Airway is patent Respiratory effort is even, unlabored, Respiratory pattern is regular, symmetrical. Historical: - Allergies: 19:48 PENICILLINS; aj1 - Home Meds: 19:48 lisinopril Oral [Active]; amlodipine oral [Active]; Prozac Oral [Active]; besaglar aj1 [Active]; Novolog Sub-Q [Active]; - PMHx: 19:48 Diabetes - IDDM; Hypertension; right eye blind; aj1 - Immunization history:: Flu vaccine is not up to date. - Social history:: Smoking status: Patient uses tobacco products, 3 cigarettes per day. - Ebola Screening: : Patient denies travel to an Ebola-affected area in the 21 days before illness onset. Screenin:49 Abuse screen: Denies threats or abuse. Nutritional screening: No deficits noted. tr5 Tuberculosis screening: No symptoms or risk factors identified. Fall Risk None identified. Assessment: 21:46 General: Appears uncomfortable, Behavior is calm, cooperative, appropriate for age. tr5 Pain: Complains of pain in face and chest Pain does not radiate. Pain currently is 9 out of 10 on a pain scale. Quality of pain is described as aching, crampy, Pain began gradually, Is continuous. Neuro: Level of Consciousness is awake, alert, obeys commands, Oriented to person, place, time, File Keeper are equal bilaterally Moves all extremities. Reports headache frontal area. Cardiovascular: Heart tones present Capillary refill < 3 seconds Pulses are all present. Edema is absent. Respiratory: Airway is patent Respiratory effort is even, unlabored, Respiratory pattern is regular, symmetrical. GI: Reports nausea, vomiting. : No signs and/or symptoms were reported regarding the genitourinary system. : No signs and/or symptoms were reported regarding the genitourinary system. EENT: No signs and/or symptoms were reported regarding the EENT system. Derm: No signs and/or symptoms reported regarding the dermatologic system. 23:00 Reassessment: No changes from previously documented assessment. Patient and/or family tr5 updated on plan of care and expected duration. Pain level reassessed. Patient states feeling better. Vital Signs: 19:48 BP 140 / 68; Pulse 77; Resp 18; Temp 98.5; Pulse Ox 100% on R/A; Weight 56.7 kg (R); aj1 Height 5 ft. 4 in. (162.56 cm) (R); Pain 6/10; 21:00 BP 139 / 70; Pulse 70; Resp 16; Pulse Ox 100% on R/A; tr5 22:00 BP 136 / 80; Pulse 65; Resp 17; Pulse Ox 100% on R/A; tr5 23:00 BP 128 / 71; Pulse 66; Resp 15; Pulse Ox 99% on R/A; tr5 19:48 Body Mass Index 21.46 (56.70 kg, 162.56 cm) aj1 ED Course: 19:22 Patient arrived in ED. cl3 19:47 Triage completed. aj1 19:48 Arm band placed on Patient placed in waiting room. EKG completed in triage. Results aj1 shown to MD. 20:44 Miah Rosario MD is Attending Physician. gs 20:50 Nick Fishman, PATRICIA is Primary Nurse. tr5 21:22 Missed attempt(s): 22 gauge in right antecubital area. lt1 21:22 Initial lab(s) drawn, by me, sent to lab. Inserted saline lock: 22 gauge in left lt1 antecubital area, using aseptic technique. 21:23 Basic Metabolic Panel Sent. lt1 21:23 CBC with Diff Sent. lt1 21:34 CT Head Brain wo Cont In Process Unspecified. EDMS 21:49 Bed in low position. Call light in reach. Side rails up X 1. tr5 21:59 Notified ED physician of a critical lab result(s). Glucose 456. tr5 21:59 Notified ED physician of a critical lab result(s). BGL 436 Dr Rosario notified. bb 23:21 Vinod Ochoa MD is Referral Physician. gs 23:53 No provider procedures requiring assistance completed. IV discontinued. tr5 Administered Medications: 21:45 Drug: Reglan 10 mg Route: IVP; Site: left antecubital; tr5 22:10 Follow up: Response: Marked relief of symptoms tr5 21:45 Drug: Benadryl 25 mg Route: IVP; Site: left antecubital; tr5 22:11 Follow up: Response: Marked relief of symptoms tr5 21:45 Drug: TORadol - Ketorolac 15 mg Route: IVP; Site: left antecubital; tr5 22:11 Follow up: Response: Marked relief of symptoms tr5 22:10 Drug: NS 0.9% 500 ml Route: IV; Rate: bolus; Site: left antecubital; tr5 22:24 Drug: Insulin Regular Human 5 units {Co-Signature: ca1 (Charisma Merino RN).} Route: Sub-Q; tr5 Site: right upper arm; 23:31 Follow up: Response: No adverse reaction tr5 Outcome: 23:23 Discharge ordered by . gs 23:53 Discharged to home tr5 23:53 Condition: stable 23:53 Discharge instructions given to patient, Instructed on discharge instructions, follow up and referral plans. Demonstrated understanding of instructions, follow-up care. 23:54 Patient left the ED. tr5 Signatures: Dispatcher [employer] Galilea Friend, RN RN aj1 Sri Nieves RN RN bb Miah Rosario MD MD gs Tran, Leah lt1 Rodriguez, Tommie, RN RN tr5 Tabatha Pack cl3 Charisma Merino RN ca1
--- NOTE | 2019-05-20 23:25 | EDPHYS ---
Physician Documentation [facility] Name: Reynaldo Mast Age: 43 yrs Sex: Male : 1975 Arrival Date: 05/20/2019 Time: 19:22 Bed 30 Private MD: ED Physician Miah Rosario HPI: 05/20 23:14 This 43 yrs old Male presents to ER via Wheelchair with complaints of gs Weakness. 23:14 The patient presents to the emergency department with weakness of the. Onset: The gs symptoms/episode began/occurred 6 month(s) ago. Associated signs and symptoms: Pertinent positives: weakness, Pertinent negatives: altered mental status, dizziness. Severity of symptoms: At their worst the symptoms were moderate in the emergency department the symptoms are unchanged. Current symptoms: Currently, the patient is not experiencing any symptoms. The patient has experienced similar episodes in the past, multiple times. Historical: - Allergies: 19:48 PENICILLINS; aj1 - Home Meds: 19:48 lisinopril Oral [Active]; amlodipine oral [Active]; Prozac Oral [Active]; besaglar aj1 [Active]; Novolog Sub-Q [Active]; - PMHx: 19:48 Diabetes - IDDM; Hypertension; right eye blind; aj1 - Immunization history:: Flu vaccine is not up to date. - Social history:: Smoking status: Patient uses tobacco products, 3 cigarettes per day. - Ebola Screening: : Patient denies travel to an Ebola-affected area in the 21 days before illness onset. ROS: 23:14 All other systems are negative. gs Exam: 23:14 Head/Face: Normocephalic, atraumatic. Eyes: Pupils equal round and reactive to light, gs extra-ocular motions intact. Lids and lashes normal. Conjunctiva and sclera are non-icteric and not injected. Cornea within normal limits. Periorbital areas with no swelling, redness, or edema. ENT: Nares patent. No nasal discharge, no septal abnormalities noted. Tympanic membranes are normal and external auditory canals are clear. Oropharynx with no redness, swelling, or masses, exudates, or evidence of obstruction, uvula midline. Mucous membranes moist. Neck: Trachea midline, no thyromegaly or masses palpated, and no cervical lymphadenopathy. Supple, full range of motion without nuchal rigidity, or vertebral point tenderness. No Meningismus. Chest/axilla: Normal chest wall appearance and motion. Nontender with no deformity. No lesions are appreciated. Cardiovascular: Regular rate and rhythm with a normal S1 and S2. No gallops, murmurs, or rubs. Normal PMI, no JVD. No pulse deficits. Respiratory: Lungs have equal breath sounds bilaterally, clear to auscultation and percussion. No rales, rhonchi or wheezes noted. No increased work of breathing, no retractions or nasal flaring. Abdomen/GI: Soft, non-tender, with normal bowel sounds. No distension or tympany. No guarding or rebound. No evidence of tenderness throughout. Back: No spinal tenderness. No costovertebral tenderness. Full range of motion. Skin: Warm, dry with normal turgor. Normal color with no rashes, no lesions, and no evidence of cellulitis. MS/ Extremity: Pulses equal, no cyanosis. Neurovascular intact. Full, normal range of motion. Neuro: Awake and alert, GCS 15, oriented to person, place, time, and situation. Cranial nerves II-XII grossly intact. Motor strength 5/5 in all extremities. Sensory grossly intact. Cerebellar exam normal. Normal gait. 23:14 Constitutional: The patient appears alert, awake. Vital Signs: 19:48 BP 140 / 68; Pulse 77; Resp 18; Temp 98.5; Pulse Ox 100% on R/A; Weight 56.7 kg (R); aj1 Height 5 ft. 4 in. (162.56 cm) (R); Pain 6/10; 21:00 BP 139 / 70; Pulse 70; Resp 16; Pulse Ox 100% on R/A; tr5 22:00 BP 136 / 80; Pulse 65; Resp 17; Pulse Ox 100% on R/A; tr5 23:00 BP 128 / 71; Pulse 66; Resp 15; Pulse Ox 99% on R/A; tr5 19:48 Body Mass Index 21.46 (56.70 kg, 162.56 cm) aj MDM: 21:03 Patient medically screened. 23:14 Data reviewed: vital signs, nurses notes. Counseling: I had a detailed discussion with gs the patient and/or guardian regarding: the historical points, exam findings, and any diagnostic results supporting the discharge/admit diagnosis, lab results, radiology results, the need for outpatient follow up, an refrigerating engineer head, a neurologist. Response to treatment: the patient's symptoms have markedly improved after treatment. 05/20 21:03 Order name: CBC with Diff; Complete Time: 22:04 05/20 21:03 Order name: Basic Metabolic Panel; Complete Time: 22:04 05/20 21:03 Order name: CT Head Brain wo Cont 05/20 21:03 Order name: EKG - Nurse/Tech; Complete Time: 21:08 Administered Medications: 21:45 Drug: Reglan 10 mg Route: IVP; Site: left antecubital; tr5 22:10 Follow up: Response: Marked relief of symptoms tr5 21:45 Drug: Benadryl 25 mg Route: IVP; Site: left antecubital; tr5 22:11 Follow up: Response: Marked relief of symptoms tr5 21:45 Drug: TORadol - Ketorolac 15 mg Route: IVP; Site: left antecubital; tr5 22:11 Follow up: Response: Marked relief of symptoms tr5 22:10 Drug: NS 0.9% 500 ml Route: IV; Rate: bolus; Site: left antecubital; tr5 22:24 Drug: Insulin Regular Human 5 units {Co-Signature: ca1 (Charisma Merino RN).} Route: Sub-Q; tr5 Site: right upper arm; 23:31 Follow up: Response: No adverse reaction tr5 Disposition: 05/20/19 23:23 Discharged to Home. Impression: Hyperglycemia, unspecified, Weakness, encephalomalacia. - Condition is Stable. - Discharge Instructions: Hyperglycemia, Weakness. - Medication Reconciliation Form, Thank You Letter, Antibiotic Education, Prescription Opioid Use form. - Follow up: Vinod Ochoa MD; When: 2 - 3 days; Reason: Re-evaluation by your physician. Signatures: Dispatcher [employer] Galilea Friend RN RN aj1 Miah Rosario MD MD gs Rodriguez, Tommie, RN RN tr5 Charisma Merino RN ca1 Corrections: (The following items were deleted from the chart) 23:54 23:23 05/20/2019 23:23 Discharged to Home. Impression: Hyperglycemia, unspecified; tr5 Weakness; encephalomalacia. Condition is Stable. Forms are Medication Reconciliation Form, Thank You Letter, Antibiotic Education, Prescription Opioid Use. Follow up: Vinod Ochoa; When: 2 - 3 days; Reason: Re-evaluation by your physician. gs
--- NOTE | 2019-05-21 07:50 | EKG ---
Test Date: 2019-05-20 Test Time: 19:55:47 Computer Project Manager: CHER MEASUREMENT RESULTS: Intervals: Rate: 74 RI: 138 QRSD: 96 QT: 388 QTc: 430 Stephens: P: 68 RI: 138 QRS: 84 T: 84 INTERPRETIVE STATEMENTS: Normal sinus rhythm Normal ECG No previous ECG available for comparison Electronically Signed On 05-21-19 07:49:52 CDT by Louie Nunez
--- NOTE | 2019-05-24 12:11 | RAD REPORT ---
EXAM DESCRIPTION: CT - Head Brain Wo Cont - 05/21/2019 3:14 am CLINICAL HISTORY: 43 years Male HEADACHE COMPARISON: None TECHNIQUE: Contiguous axial images of the brain were obtained without the administration of intraven ous contrast.This exam was performed according to our departmental dose-optimization program which in cludes use of Automated Exposure Control, adjustment of the mA and/or kV according to patient size an d/or use of iterative reconstruction technique. FINDINGS: Brain: No acute intracranial hemorrhage. No extra-axial collection. No mass effect or parveen iation. Encephalomalacia versus the sinuses of the left cerebellum with CSF collection communicatin g with fourth ventricle. Truncated appearance of the left middle brachial pontis. Ventricles: Within normal limits in size. Right temporal horn is asymmetrically large. Globes and orbits: No acute abnormality. Bones: No acute osseous finding. Paranasal sinuses: Mucosal thickening and effort levels in the maxillary sinuses. Mastoid air cells: Well pneumatized.. Soft tissues: Within normal limits Senior Data Integration Developer view shows no additional significant finding IMPRESSION: No acute intracranial abnormality. 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 MRI brain with and without contrast is recommended for further characterization. Pansinus disease with maxillary air-fluid levels. Correlate for acute sinusitis. Electronically signed by: Attila Carl DO 05/20/2019 9:58 PM CDT Due to temporary technical issues with the PACS/Fluency reporting system, reports are being signed by the in house radiologist as a courtesy to ensure prompt reporting. The interpreting radiologist is f ully responsible for the content of the report.
== END 2019-05-20 23:54 | disposition home or self-care (01) ==
LOC: ER 19:17
DX: G93.89 Other specified disorders of brain (principal); R73.9 Hyperglycemia, unspecified; E11.9 Type 2 diabetes mellitus without complications; I10 Essential (primary) hypertension; F17.210 Nicotine dependence, cigarettes, uncomplicated; Z88.0 Allergy status to penicillin
CPT/HCPCS: 93005; 85025; 80048; 36415; 70450; 96375; 96372; 96374; 99284; J2765

== ENCOUNTER 2019-08-19 06:44 | Day surgery (SDC) | payer OTHER ==
[2019-08-10 11:03] LABS: Absolute Lymphocytes (CBC) 2.5 K/uL (0.7-4.9); Basophils % 1.3 % (0-1.3); Hematocrit 35.9 % (39.6-49.0); Lymphocytes % 28.6 % (15.3-44.8); RBC Red Blood Cell Count 4.16 M/uL (4.33-5.43)
[2019-08-10 11:04] LABS: Protime INR 0.9
[2019-08-10 11:13] LABS: Potassium 4.4 mmol/L (3.5-5.1)
[~2019-08-19 06:44] MED LIST: CLINDAMYCIN INJ 600 MG in NA CHLORIDE 0.9% 50 ML IV SCH
[2019-08-19] MEDS ORDERED: NA CHLORIDE 0.9% 1,000 ML ONE (06:51)
[2019-08-19] MEDS ORDERED: propofoL 200 MG/20 ML VIAL IV ONE (07:09)
[2019-08-19] MEDS ORDERED: MIDAZOLAM HCL 2 MG/2 ML INJ ONE (07:09)
[2019-08-19] MEDS ORDERED: LIDOCAINE 2% MPF 5 ML VIAL ONE (07:09)
[2019-08-19] MEDS ORDERED: FENTANYL CITR 100 MCG/2 ML ONE (07:09)
[2019-08-19] MEDS ORDERED: ONDANSETRON 4 MG/2 ML VIAL ONE (07:11)
[2019-08-19] MEDS ORDERED: GLYCOPYRROLATE 0.2 MG/ML SYR ONE (07:42)
[2019-08-19] MEDS: BUPIVACAINE 0.25% PF 10 ML VIAL ONE ×2 (07:57→08:00)
[2019-08-19] MEDS ORDERED: MEPERIDINE HCL 25 MG/0.5 ML ONE (08:04)
--- NOTE | 2019-08-19 08:22 | P.BOP ---
Preoperative diagnosis: left ring finger trigger digit Postoperative diagnosis: same Primary procedure: left ring finger A1 kellie release Integration Analyst: NONE,NONE Estimated blood loss: 2 cc Specimen: none Findings: see dictation Anesthesia: General Complications: None Implants: none Fluids & blood products: per anesthesia record; TT: 17 mins @ 250 mmHg Transferred to: Recovery Room Condition: Good
[2019-08-19 09:10] VITALS: O2SAT 98
[2019-08-19] MEDS ORDERED: TRAMADOL HCL 50 MG TAB ONE (09:35)
[2019-08-19 10:38] VITALS: BP 143/89; TEMP 96.9
--- NOTE | 2019-08-20 00:01 | OP ---
Date of Procedure: 08/19/2019 Surgeon: Pratik Barton MD Preoperative Diagnosis: Left hand ring finger trigger digit. Postoperative Diagnosis: Left hand ring finger trigger digit. Procedure Performed: Left hand ring finger A1 kellie release. Anesthesia: General LMA. Fluids: Per Anesthesia record. Estimated Blood Loss: Less than 5 mL. Tourniquet Time: 70 minutes at 250 mmHg. Indication For Procedure: Reynaldo is a 43-year-old male who presented to my clinic with signs and sympt oms consistent with the left hand ring finger trigger digit. The patient has failed conservative sharon atment measures including corticosteroid injections. Patient's pain affected his activities of daily living, as well as work. I discussed with the patient at length risks and benefits associated with operative and nonoperative treatment. He expressed understanding and elected to proceed with the ope rative treatment. Description Of Procedure: After informed consent was obtained, the patient was identified in the pre operative holding area. The left hand ring finger was marked. The patient was then brought back to the operating room, transferred to the operating table in a supine fashion, placed under general LMA anesthesia. The left upper extremity was then prepped and draped in usual sterile fashion. A time-o ut was initiated. The correct patient and procedure were confirmed and identified. The patient had received his preoperative prophylactic antibiotics. The left upper extremity was then exsanguinated using an Esmarch and the tourniquet was inflated at 250 mmHg. Approximately 1 cm incision was made c entered over the A1 kellie of the ring finger on the volar side of the palm. Dissection was then jai en down to the flexor tendon sheath using Ragnell retractors until flexor tendon sheath was identifie d. It was split and divided using a 15 blade and released proximally and distally using tenotomies. Segment of the flexor tendon sheath was excised to minimize risk for recurrence. The flexor tendons were then brought out through the incision using a Ragnell and has full excursion of the tendons wit hout any triggering noted. The wound was then irrigated thoroughly with normal saline. Skin was theodore roximated using a 5-0 Prolene. Sterile dressings were applied. The patient was awakened and transfe rred to PACU in stable condition. Postoperative Plan: He will follow up in 1 week for wound check and suture removal. He may work on range of motion exercises as tolerated and be nonweightbearing at this time. CV/MODL Voice ID: [id number] Report ID: [id number]
== END 2019-08-19 10:05 | disposition home or self-care (01) ==
LOC: OR 06:44
PROVIDERS: ATTEND Orthopaedic Surgery Sports Medicine
PROC: 0LN80ZZ Release Left Hand Tendon, Open Approach (ICD-10-PCS; principal; 2019-08-19 07:30)
DX: M65.342 Trigger finger, left ring finger (principal); E11.9 Type 2 diabetes mellitus without complications; I10 Essential (primary) hypertension; E78.2 Mixed hyperlipidemia; B18.2 Chronic viral hepatitis C; F41.8 Other specified anxiety disorders; H54.61 Unqualified visual loss, right eye, normal vision left eye; F17.210 Nicotine dependence, cigarettes, uncomplicated; Z79.4 Long term (current) use of insulin; Z88.0 Allergy status to penicillin
CPT/HCPCS: 85025; 80048; 36415; 85610; 82947 ×2; 85730; 26055; J2704; J2250; J3010; J2175; J7030; J2405

== ENCOUNTER 2019-09-20 17:47 | Emergency (ER) | payer OTHER ==
[2019-09-20] MEDS ORDERED: ALBUTEROL 2.5 MG/3 ML NEB SOL ONE (18:53)
[2019-09-20] MEDS ORDERED: IPRATROPIUM BROM 0.5MG/2.5ML ONE (18:54)
--- NOTE | 2019-09-20 19:22 | EDPHYS ---
Physician Documentation [facility] Name: Reynaldo Mast Age: 43 yrs Sex: Male : 1975 Arrival Date: 09/20/2019 Time: 17:51 Bed 16 Private MD: ED Physician Stan Araujo HPI: 09/20 19:22 This 43 yrs old Male presents to ER via Ambulatory with complaints of Flu kb Symptoms. 19:23 The patient or guardian reports cough, that is intermittent, described as mild, with no kb sputum, flu symptoms, low-grade fever, myalgias. Onset: The symptoms/episode began/occurred 3 day(s) ago. Severity of symptoms: At their worst the symptoms were moderate, in the emergency department the symptoms are unchanged. Modifying factors: The symptoms are alleviated by nothing, the symptoms are aggravated by nothing. Associated signs and symptoms: Pertinent positives: fever. The patient has not experienced similar symptoms in the past. The patient has not recently seen a physician. Historical: - Allergies: 17:59 PENICILLINS; aa5 - Home Meds: 18:56 amlodipine oral [Active]; lisinopril 20 mg oral tab [Active]; besaglar [Active]; tw2 Novolog Sub-Q [Active]; Prozac Oral [Active]; - PMHx: 17:59 Diabetes - IDDM; Hypertension; right eye blind; aa5 - Immunization history:: Flu vaccine status is unknown. - Social history:: Smoking status: Patient uses tobacco products, smokes one-half pack cigarettes per day. - Ebola Screening: : No symptoms or risks identified at this time. ROS: 19:22 ENT: Negative for injury, pain, and discharge, Neck: Negative for injury, pain, and kb swelling, Cardiovascular: Negative for chest pain, palpitations, and edema, Abdomen/GI: Negative for abdominal pain, nausea, vomiting, diarrhea, and constipation, Back: Negative for injury and pain, MS/Extremity: Negative for injury and deformity, Skin: Negative for injury, rash, and discoloration, Neuro: Negative for headache, weakness, numbness, tingling, and seizure. 19:22 Constitutional: Positive for body aches, chills, fatigue, fever, malaise. 19:22 Respiratory: Positive for cough, Negative for dyspnea on exertion, hemoptysis, orthopnea, pleurisy, shortness of breath, sputum production, wheezing. Exam: 19:22 Constitutional: This is a well developed, well nourished patient who is awake, alert, kb and in no acute distress. Head/Face: Normocephalic, atraumatic. ENT: Nares patent. No nasal discharge, no septal abnormalities noted. Tympanic membranes are normal and external auditory canals are clear. Oropharynx with no redness, swelling, or masses, exudates, or evidence of obstruction, uvula midline. Mucous membranes moist. Neck: Trachea midline, no thyromegaly or masses palpated, and no cervical lymphadenopathy. Supple, full range of motion without nuchal rigidity, or vertebral point tenderness. No Meningismus. Chest/axilla: Normal chest wall appearance and motion. Nontender with no deformity. No lesions are appreciated. Cardiovascular: Regular rate and rhythm with a normal S1 and S2. No gallops, murmurs, or rubs. Normal PMI, no JVD. No pulse deficits. Abdomen/GI: Soft, non-tender, with normal bowel sounds. No distension or tympany. No guarding or rebound. No evidence of tenderness throughout. Back: No spinal tenderness. No costovertebral tenderness. Full range of motion. Skin: Warm, dry with normal turgor. Normal color with no rashes, no lesions, and no evidence of cellulitis. MS/ Extremity: Pulses equal, no cyanosis. Neurovascular intact. Full, normal range of motion. Neuro: Awake and alert, GCS 15, oriented to person, place, time, and situation. Cranial nerves II-XII grossly intact. Motor strength 5/5 in all extremities. Sensory grossly intact. Cerebellar exam normal. Normal gait. 19:22 Respiratory: the patient does not display signs of respiratory distress, Respirations: normal, Breath sounds: wheezing: expiratory that is mild, is scattered. Vital Signs: 18:00 BP 170 / 89; Pulse 73; Resp 18 S; Temp 97.8(TE); Pulse Ox 100% on R/A; Weight 54.43 kg aa5 (R); Height 5 ft. 4 in. (162.56 cm) (R); Pain 7/10; 19:15 BP 171 / 83; Pulse 72; Resp 18; Pulse Ox 96% on R/A; jb4 18:00 Body Mass Index 20.60 (54.43 kg, 162.56 cm) aa5 MDM: 18:15 Patient medically screened. kb 19:16 Data reviewed: vital signs, nurses notes. Data interpreted: Pulse oximetry: on room air kb is 100 %. Interpretation: normal. Counseling: I had a detailed discussion with the patient and/or guardian regarding: the historical points, exam findings, and any diagnostic results supporting the discharge/admit diagnosis, lab results, the need for outpatient follow up, a family practitioner, to return to the emergency department if symptoms worsen or persist or if there are any questions or concerns that arise at home. 09/20 18:07 Order name: Flu; Complete Time: 19:10 kb 09/20 18:07 Order name: Strep; Complete Time: 19:15 kb 09/20 19:15 Order name: Throat Culture EDMS Administered Medications: 18:53 Drug: DuoNeb (3:1) (2.5 mg - 0.5 mg) 3 ml Route: Nebulizer; tw2 19:20 Follow up: Response: No adverse reaction jb4 Disposition: 09/21 06:38 Co-signature as Attending Physician, Stan Araujo MD I agree with the assessment and kdr plan of care. Disposition: 09/20/19 19:21 Discharged to Home. Impression: Influenza due to certain identified influenza viruses. - Condition is Stable. - Discharge Instructions: Influenza, Adult, [id number]. - Prescriptions for Albuterol Sulfate 90 mcg/actuation - inhale 1-2 puff by INHALATION route every 4-6 hours; 1 Inhaler. - Work release form, Medication Reconciliation Form, Thank You Letter, Antibiotic Education, Prescription Opioid Use form. - Follow up: Emergency Department; When: As needed; Reason: Worsening of condition. Follow up: Private Physician; When: 2 - 3 days; Reason: Recheck today's complaints, Continuance of care, Re-evaluation by your physician. Signatures: Dispatcher [employer] EDMS Federica Herrera, Stan Ortiz MD MD kdr Calderon, Audri, RN RN aa5 Annette Pak RN RN tw2 Desmond Suárez RN RN jb4 Corrections: (The following items were deleted from the chart) 09/20 19:32 19:21 09/20/2019 19:21 Discharged to Home. Impression: Influenza due to certain jb4 identified influenza viruses. Condition is Stable. Forms are Medication Reconciliation Form, Thank You Letter, Antibiotic Education, Prescription Opioid Use. Follow up: Emergency Department; When: As needed; Reason: Worsening of condition. Follow up: Private Physician; When: 2 - 3 days; Reason: Recheck today's complaints, Continuance of care, Re-evaluation by your physician. kb
--- NOTE | 2019-09-20 19:22 | ER ---
Nurse's Notes [facility] Name: Reynaldo Mast Age: 43 yrs Sex: Male : 1975 Arrival Date: 09/20/2019 Time: 17:51 Bed 16 Private MD: Diagnosis: Influenza due to certain identified influenza viruses Presentation: 09/20 17:58 Presenting complaint: Patient states: productive cough, congestion, body aches that aa5 began 4 days ago. Pt also reports sore throat and toothache. Transition of care: patient was not received from another setting of care. Onset of symptoms was September 2019. Risk Assessment: Do you want to hurt yourself or someone else? Patient reports no desire to harm self or others. Initial Sepsis Screen: Does the patient meet any 2 criteria? No. Patient's initial sepsis screen is negative. Does the patient have a suspected source of infection? Yes: Productive cough/pneumonia. Care prior to arrival: None. 17:58 Acuity: MADI 4 aa5 17:58 Method Of Arrival: Ambulatory aa5 Historical: - Allergies: 17:59 PENICILLINS; aa5 - Home Meds: 18:56 amlodipine oral [Active]; lisinopril 20 mg oral tab [Active]; besaglar [Active]; tw2 Novolog Sub-Q [Active]; Prozac Oral [Active]; - PMHx: 17:59 Diabetes - IDDM; Hypertension; right eye blind; aa5 - Immunization history:: Flu vaccine status is unknown. - Social history:: Smoking status: Patient uses tobacco products, smokes one-half pack cigarettes per day. - Ebola Screening: : No symptoms or risks identified at this time. Screenin:54 Abuse screen: Denies threats or abuse. Nutritional screening: No deficits noted. tw2 Tuberculosis screening: No symptoms or risk factors identified. Fall Risk None identified. Assessment: 18:53 General: Appears in no apparent distress. Behavior is calm, cooperative, appropriate tw2 for age. Pain: Complains of pain in body aches. Neuro: Level of Consciousness is awake, alert, obeys commands, Oriented to person, place, time, situation. Cardiovascular: Patient's skin is warm and dry. Respiratory: Airway is patent Respiratory effort is even, unlabored, Respiratory pattern is regular, symmetrical. GI: No signs and/or symptoms were reported involving the gastrointestinal system. : No signs and/or symptoms were reported regarding the genitourinary system. EENT: Reports nasal congestion nasal discharge. Musculoskeletal: Range of motion: intact in all extremities. 19:18 Reassessment: Patient appears in no apparent distress at this time. Patient and/or jb4 family updated on plan of care and expected duration. Pain level reassessed. Patient is alert, oriented x 3, equal unlabored respirations, skin warm/dry/pink. 19:18 Respiratory: Airway is patent Respiratory effort is even, unlabored, Respiratory jb4 pattern is regular, symmetrical, Breath sounds are clear bilaterally. Vital Signs: 18:00 BP 170 / 89; Pulse 73; Resp 18 S; Temp 97.8(TE); Pulse Ox 100% on R/A; Weight 54.43 kg aa5 (R); Height 5 ft. 4 in. (162.56 cm) (R); Pain 7/10; 19:15 BP 171 / 83; Pulse 72; Resp 18; Pulse Ox 96% on R/A; jb4 18:00 Body Mass Index 20.60 (54.43 kg, 162.56 cm) aa5 ED Course: 17:51 Patient arrived in ED. mr 17:59 Triage completed. aa5 17:59 Arm band placed on. aa5 18:07 Federica Herrera FNP-C is [facility]. kb 18:07 Stan Araujo MD is Attending Physician. kb 18:15 Bed in low position. Call light in reach. Adult w/ patient. tw2 18:20 Annette Pak RN is Primary Nurse. tw2 19:02 Report given to PATRICIA Logan. tw2 19:15 No provider procedures requiring assistance completed. Patient did not have IV access jb4 during this emergency room visit. Administered Medications: 18:53 Drug: DuoNeb (3:1) (2.5 mg - 0.5 mg) 3 ml Route: Nebulizer; tw2 19:20 Follow up: Response: No adverse reaction jb4 Outcome: 19:21 Discharge ordered by . kb 19:30 Discharged to home ambulatory, with family. jb4 19:30 Condition: stable 19:30 Discharge instructions given to patient, family, Instructed on discharge instructions, follow up and referral plans. Demonstrated understanding of instructions, follow-up care. 19:32 Patient left the ED. jb4 Signatures: Federica Herrera, VALARIEC LIVESTOCK HAULIER-Ana M Barajas mr McraeDaxa cooley, RN RN aa5 Annette Pak RN RN tw2 Desmond Suárez RN RN jb4
[2019-09-20 20:09] VITALS: TEMP 97.8
[2019-09-20 20:10] VITALS: BP 171/83; O2SAT 96
== END 2019-09-20 19:32 | disposition home or self-care (01) ==
LOC: ER 17:47
DX: J10.1 Influenza due to other identified influenza virus with other respiratory manifestations (principal); Z88.0 Allergy status to penicillin; I10 Essential (primary) hypertension
CPT/HCPCS: 87070; 87081; 87804; 94640; 99284